=== PATIENT | female | born 1990 | race African-American/Black ===

== ENCOUNTER 2019-04-03 14:45 | Inpatient (IN) ==
[2019-04-03] MEDS ORDERED: HYDROmorphone 2 MG/1 ML VIAL IV STA (15:10)
[2019-04-03] MEDS ORDERED: ONDANSETRON 4 MG/2 ML VIAL IV STA (15:10)
[2019-04-03 15:55] LABS: Basophils % 0.3 % (0.0-0.8); Eosinophils # 0.1 10*3/uL (0.0-0.87); Hematocrit 34.5 VOL% (35.7-47.0); Hemoglobin 10.2 GM/DL (12.0-16.0); Immature Granulocytes % 0.3 %; Immature Granulocytes Absolute 0.02 #; Lymphocytes # 1.4 10*3/uL (1.4-4.0); Lymphocytes % 24.3 % (21.3-54.2); Mean Corpuscular HGB Conc 29.6 GM/DL (32-36); Mean Corpuscular Volume 64.8 FL (87-102); Mean Platelet Volume 10.2 FL (9.6-12.0); Monocytes % 3.9 % (1.7-12.7); Neutrophils % 70.2 % (38.7-73.9); Platelet Count 375 T/CUMM (130-400); Red Blood Count 5.32 MC/CUMM (3.8-5.5); Red Cell Distribution Width 17.6 % (9.3-17.3); White Blood Count 5.8 T/CUMM (4-12)
[2019-04-03 15:59] LABS: Platelet Estimate Normal
[2019-04-03 16:03] LABS: Hypochromasia Slight; Microcytosis 1+
[2019-04-03 16:03] LABS: Apearance,Urine Slightly Hazy (Clear); Bacteria,Urine Occasional /HPF (Few); Bilirubin,Urine Negative (Negative); Blood, Urine Negative (Negative); Glucose,Urine (UA) Negative (Negative); Ketones,Urine 20 mg/dL (Negative); Mucus,Urine Occasional /LPF (Occasional); Nitrite,Urine Negative (Negative); Protein,Urine Negative; RBC,Urine 6 /HPF (0-4); Squamous Epithelial Cell,Urine Occasional /HPF (0-10); Urine Color Straw (Yellow); Urine Specific Gravity 1.011 (1.001-1.035); Urine Urobilinogen < 2.0 EU/DL (0.2-1.0); WBC,Urine 17 /HPF (0-6)
[2019-04-03 16:10] LABS: Alanine Aminotransferase 13 U/L (13-56); Albumin 3.4 G/DL (3.4-5.0); Alkaline Phosphatase 92 U/L (45-117); Aspartate Amino Transferase 13 U/L (0-37); Bilirubin,Total < 0.39 MG/DL (0.2-1.0); Blood Urea Nitrogen 5 MG/DL (7-18); Calcium 8.8 MG/DL (8.5-10.1); Estimated Glom Filtration Rate 125 ML/MIN; Glucose 77 MG/DL (74-106); Osmolality,Calculated 261.4 MOS/KG (273-304); Total Protein 9.1 G/DL (6.4-8.3)
[2019-04-03 16:16] LABS: Anisocytosis Slight; Ovalocytes Few
[2019-04-03] MEDS ORDERED: PIPERACILLIN/TAZOBACTAM 3,375 MG in SODIUM CHLORIDE 0.9% 100 ML IV STA (16:32)
[2019-04-03] MEDS ORDERED: ONDANSETRON 4 MG/2 ML VIAL IV PRN (18:13)
[2019-04-03] MEDS ORDERED: ACETAMINOPHEN 325 MG TABLET PO PRN (18:13)
[2019-04-03] MEDS ORDERED: DOCUSATE SODIUM 100 MG CAPSULE PO PRN (18:13)
[2019-04-03] MEDS ORDERED: PROMETHAZINE 25 MG TABLET PO PRN (18:13)
[2019-04-03] MEDS ORDERED: ZALEPLON 5 MG CAPSULE PO PRN (18:13)
[2019-04-03] MEDS: HYDROmorphone 2 MG/1 ML VIAL IV PRN ×2 (19:39→23:50)
[2019-04-03] MEDS: SODIUM CHLORIDE 0.9% 1,000 ML IV SCH (20:02)
[2019-04-03] MEDS: metroNIDAZOLE INJ 500 MG in PREMIX 1 EACH IV SCH (20:12)
[2019-04-03] MEDS ORDERED: ENOXAPARIN 40 MG/0.4 ML SYRINGE SUBCUT SCH (21:00)
[2019-04-04] MEDS: PIPERACILLIN/TAZOBACTAM 3,375 MG in SODIUM CHLORIDE 0.9% 100 ML IV SCH ×3 (02:10→18:07)
[2019-04-04 05:34] LABS: Basophils % 0.2 % (0.0-0.8); Eosinophils # 0.1 10*3/uL (0.0-0.87); Eosinophils % 1.7 % (0.00-10.9); Hematocrit 25.7 VOL% (35.7-47.0); Hemoglobin 7.4 GM/DL (12.0-16.0); Immature Granulocytes % 0.4 %; Immature Granulocytes Absolute 0.02 #; Lymphocytes # 1.5 10*3/uL (1.4-4.0); Lymphocytes % 30.8 % (21.3-54.2); Mean Corpuscular HGB Conc 28.8 GM/DL (32-36); Mean Corpuscular Volume 66.4 FL (87-102); Monocytes % 5.5 % (1.7-12.7); Neutrophils % 61.4 % (38.7-73.9); Platelet Count 296 T/CUMM (130-400); Red Blood Count 3.87 MC/CUMM (3.8-5.5); Red Cell Distribution Width 17.3 % (9.3-17.3); White Blood Count 4.7 T/CUMM (4-12)
[2019-04-04 05:55] LABS: Hypochromasia 2+; Platelet Estimate Adequate
[2019-04-04 05:56] LABS: Microcytosis Slight
[2019-04-04] MEDS: metroNIDAZOLE INJ 500 MG in PREMIX 1 EACH IV SCH ×3 (06:03→22:34)
[2019-04-04 06:16] LABS: Albumin 2.5 G/DL (3.4-5.0); Bilirubin,Total 0.8 MG/DL (0.2-1.0); Calcium 8.2 MG/DL (8.5-10.1); Osmolality,Calculated 269.8 MOS/KG (273-304); Risk Ratio 2.78; Thyroid Stimulating Hormone 1.75 uIU/ml (0.358-3.74); Total Protein 7.5 G/DL (6.4-8.3)
[2019-04-04] MEDS: predniSONE 20 MG TABLET PO SCH ×2 (07:29→09:07)
[2019-04-04] MEDS: HYDROmorphone 2 MG/1 ML VIAL IV PRN ×2 (07:29→12:06)
[2019-04-04] MEDS ORDERED: USTEKINUMAB 90 MG SUBCUT SCH (08:42)
[2019-04-04] MEDS ORDERED: USTEKINUMAB SUBCUT SCH (09:00)
[2019-04-04] MEDS: AMITRIPTYLINE 25 MG TABLET PO SCH ×2 (20:59→21:28)
[2019-04-05] MEDS: PIPERACILLIN/TAZOBACTAM 3,375 MG in SODIUM CHLORIDE 0.9% 100 ML IV SCH (02:47)
[2019-04-05] MEDS: SODIUM CHLORIDE 0.9% 1,000 ML IV SCH ×2 (02:47→02:49)
[2019-04-05 05:06] LABS: Basophils % 0.2 % (0.0-0.8); Eosinophils % 0.3 % (0.00-10.9); Hematocrit 26.4 VOL% (35.7-47.0); Hemoglobin 7.6 GM/DL (12.0-16.0); Immature Granulocytes % 0.3 %; Immature Granulocytes Absolute 0.02 #; Lymphocytes # 1.2 10*3/uL (1.4-4.0); Lymphocytes % 21.2 % (21.3-54.2); Mean Corpuscular HGB Conc 28.8 GM/DL (32-36); Mean Corpuscular Volume 66.8 FL (87-102); Mean Platelet Volume 10.4 FL (9.6-12.0); Monocytes % 6.2 % (1.7-12.7); Neutrophils % 71.8 % (38.7-73.9); Platelet Count 322 T/CUMM (130-400); Red Blood Count 3.95 MC/CUMM (3.8-5.5); Red Cell Distribution Width 17.4 % (9.3-17.3); White Blood Count 5.8 T/CUMM (4-12)
[2019-04-05 05:26] LABS: Hypochromasia 2+; Platelet Estimate Adequate
[2019-04-05 06:30] LABS: Sedimentation Rate-Westergren 71 MM/HR (0-20)
[2019-04-05 08:30] VITALS: BP 146/90
[2019-04-05] MEDS: predniSONE 20 MG TABLET PO SCH (09:17)
== END 2019-04-05 09:40 | disposition left against medical advice (07) | DRG 245 ==
LOC: N.ED 14:45 → N.EDINP 18:13 → SUATTDRO 18:13 → N.EDINP 19:18 → N.3E 19:38
PROVIDERS: ADMIT Internal Medicine; ATTEND Internal Medicine

== ENCOUNTER 2019-09-20 19:30 | Inpatient (IN) ==
[2019-09-20] MEDS ORDERED: ONDANSETRON 4 MG/2 ML VIAL IV STA (20:00)
[2019-09-20] MEDS ORDERED: SODIUM CHLORIDE 0.9% 500 ML IV STA (20:00)
[2019-09-20] MEDS ORDERED: PANTOPRAZOLE 40 MG VIAL IV STA (20:00)
[2019-09-20] MEDS ORDERED: KETOROLAC 30 MG/1 ML VIAL IV STA (20:00)
[2019-09-20 20:29] LABS: Basophils % 0.4 % (0.0-0.8); Eosinophils # 0.1 10*3/uL (0.0-0.87); Eosinophils % 1.4 % (0.00-10.9); Hematocrit 33.1 VOL% (35.7-47.0); Hemoglobin 9.2 GM/DL (12.0-16.0); Immature Granulocytes % 0.2 %; Immature Granulocytes Absolute 0.01 #; Lymphocytes % 39.5 % (21.3-54.2); Mean Corpuscular HGB Conc 27.8 GM/DL (32-36); Mean Corpuscular Volume 62.3 FL (87-102); Monocytes % 10.5 % (1.7-12.7); Platelet Count 232 T/CUMM (130-400); Red Blood Count 5.31 MC/CUMM (3.8-5.5); Red Cell Distribution Width 21.2 % (9.3-17.3); White Blood Count 5.1 T/CUMM (4-12)
[2019-09-20 20:32] LABS: Alanine Aminotransferase 16 U/L (13-56); Albumin 3.4 G/DL (3.4-5.0); Alkaline Phosphatase 62 U/L (45-117); Amylase 138 U/L (25-115); Aspartate Amino Transferase 15 U/L (0-37); Bilirubin,Total < 0.39 MG/DL (0.2-1.0); Blood Urea Nitrogen 7 MG/DL (7-18); Calcium 8.7 MG/DL (8.5-10.1); Estimated Glom Filtration Rate 118 ML/MIN; Glucose 98 MG/DL (74-106); Osmolality,Calculated 267.1 MOS/KG (273-304); Total Protein 9.3 G/DL (6.4-8.3)
[2019-09-20 20:47] LABS: Apearance,Urine Slightly Hazy (Clear); Bilirubin,Urine Negative (Negative); Blood, Urine Negative (Negative); Glucose,Urine (UA) Negative (Negative); Ketones,Urine Negative (Negative); Mucus,Urine Occasional /LPF (Occasional); Nitrite,Urine Negative (Negative); Protein,Urine Negative; RBC,Urine 6 /HPF (0-4); Squamous Epithelial Cell,Urine Occasional /HPF (0-10); Urine Color Yellow (Yellow); Urine Specific Gravity 1.017 (1.001-1.035); Urine Urobilinogen < 2.0 EU/DL (0.2-1.0); WBC,Urine 25 /HPF (0-6)
[2019-09-20] MEDS ORDERED: PIPERACILLIN/TAZOBACTAM 3,375 MG in SODIUM CHLORIDE 0.9% 100 ML IV STA (21:41)
[2019-09-20] MEDS ORDERED: MEPERIDINE 25 MG/1 ML VIAL IV STA (21:50)
[2019-09-20] MEDS ORDERED: DEXTROSE 50% 25 GM/50 ML VIAL IV PRN (22:08)
[2019-09-20] MEDS ORDERED: GLUCAGON 1 MG VIAL IM PRN (22:08)
[2019-09-21] MEDS: SODIUM CHLORIDE 0.9% 1,000 ML IV SCH ×3 (00:03→20:03)
[2019-09-21] MEDS: MORPHINE 4 MG/1 ML VIAL IV PRN ×2 (01:23→06:40)
[2019-09-21] MEDS: cefTRIAXone 2,000 MG in SYRINGE 1 EACH IV SCH (01:23)
[2019-09-21] MEDS: metroNIDAZOLE INJ 500 MG in PREMIX 1 EACH IV SCH ×3 (01:28→17:55)
[2019-09-21 04:09] LABS: Anisocytosis 1+; Platelet Estimate Normal; Polychromasia 1+; Target Cells Few; Tear Drop Cells Few
[2019-09-21 05:17] LABS: Basophils % 0.5 % (0.0-0.8); Eosinophils # 0.1 10*3/uL (0.0-0.87); Eosinophils % 1.3 % (0.00-10.9); Immature Granulocytes % 0.3 %; Immature Granulocytes Absolute 0.01 #; Lymphocytes # 1.6 10*3/uL (1.4-4.0); Lymphocytes % 40.4 % (21.3-54.2); Mean Corpuscular HGB Conc 27.3 GM/DL (32-36); Mean Corpuscular Volume 63.3 FL (87-102); Monocytes % 11.1 % (1.7-12.7); Neutrophils % 46.4 % (38.7-73.9); Platelet Count 247 T/CUMM (130-400); Red Blood Count 4.63 MC/CUMM (3.8-5.5)
[2019-09-21 05:35] LABS: Calcium 7.9 MG/DL (8.5-10.1); Osmolality,Calculated 275.5 MOS/KG (273-304)
[2019-09-21 05:48] LABS: Hematocrit 29.2 VOL% (35.7-47.0)
[2019-09-21 05:53] LABS: Anisocytosis 1+; Hypochromasia 2+; Microcytosis 1+; Platelet Estimate Normal
[2019-09-21] MEDS: HYDROmorphone 2 MG/1 ML VIAL IV PRN ×5 (09:53→23:29)
[2019-09-21] MEDS: METOCLOPRAMIDE 10 MG/2 ML VIAL IV SCH ×3 (14:17→23:29)
[2019-09-22] MEDS: metroNIDAZOLE INJ 500 MG in PREMIX 1 EACH IV SCH ×3 (00:01→17:33)
[2019-09-22] MEDS: ONDANSETRON 4 MG/2 ML VIAL IV PRN (00:49)
[2019-09-22] MEDS: cefTRIAXone 2,000 MG in SYRINGE 1 EACH IV SCH (01:05)
[2019-09-22] MEDS: HYDROmorphone 2 MG/1 ML VIAL IV PRN ×6 (04:15→22:51)
[2019-09-22] MEDS: SODIUM CHLORIDE 0.9% 1,000 ML IV SCH ×2 (04:15→14:23)
[2019-09-22] MEDS: METOCLOPRAMIDE 10 MG/2 ML VIAL IV SCH ×3 (05:03→17:31)
[2019-09-22 05:44] LABS: Calcium 8.4 MG/DL (8.5-10.1); Osmolality,Calculated 262.4 MOS/KG (273-304)
[2019-09-22 05:46] LABS: Basophils % 0.1 % (0.0-0.8); Eosinophils % 0.2 % (0.00-10.9); Hematocrit 29.6 VOL% (35.7-47.0); Immature Granulocytes % 0.2 %; Immature Granulocytes Absolute 0.02 #; Lymphocytes # 1.5 10*3/uL (1.4-4.0); Mean Corpuscular HGB Conc 28.7 GM/DL (32-36); Mean Corpuscular Volume 60.7 FL (87-102); Monocytes % 4.6 % (1.7-12.7); Neutrophils % 75.9 % (38.7-73.9); Platelet Count 242 T/CUMM (130-400); Red Blood Count 4.88 MC/CUMM (3.8-5.5); Red Cell Distribution Width 21.2 % (9.3-17.3)
[2019-09-22 05:49] LABS: Hemoglobin 8.5 GM/DL (12.0-16.0)
[2019-09-22] MEDS ORDERED: KETOROLAC 30 MG/1 ML VIAL IV ONE (11:24)
[2019-09-22] MEDS ORDERED: ACETAMINOPHEN/CODEINE 300-30 MG TABLET PO PRN (11:24)
[2019-09-23] MEDS: METOCLOPRAMIDE 10 MG/2 ML VIAL IV SCH ×2 (00:55→05:45)
[2019-09-23] MEDS: HYDROmorphone 2 MG/1 ML VIAL IV PRN ×2 (00:57→03:00)
[2019-09-23] MEDS: metroNIDAZOLE INJ 500 MG in PREMIX 1 EACH IV SCH (00:58)
[2019-09-23] MEDS: ONDANSETRON 4 MG/2 ML VIAL IV PRN (03:00)
[2019-09-23] MEDS: cefTRIAXone 2,000 MG in SYRINGE 1 EACH IV SCH (03:03)
[2019-09-23 04:39] VITALS: BP 119/80
[2019-09-23] MEDS ORDERED: HYDROmorphone 2 MG/1 ML VIAL IV PRN (07:19)
== END 2019-09-23 08:02 | disposition left against medical advice (07) | DRG 245 ==
LOC: N.ED 19:30 → SUATTDRO 22:08 → N.EDINP 22:08 → N.TELES 09-21 00:16
PROVIDERS: ADMIT Internal Medicine; ATTEND Internal Medicine